=== PATIENT | male | born 1965 | race Caucasian/White ===

== ENCOUNTER 2018-07-12 19:40 | Emergency (ER) | payer OTHER ==
[~2018-07-12] VITALS: Ht 180.3 cm; Wt 91.9 kg
[2018-07-12 19:46] VITALS: Ht 180.3 cm; Wt 91.9 kg
--- NOTE | 2018-07-12 20:17 | ERD ---
ER Documentation Chief Complaint Chief Complaint pain right rib cage, states fell from ladder in april, c/o sob HPI 53-year-old male presents with complain of rib pain and shortness of breath. Patient states to have fallen off a ladder May 12 and to have had left rib pain since the accident. Patient also notes over the past week he has had cough, congestion, shortness of breath and increase in chest wall pain with cough and deep respirations. Patient states to have seen his PCP 2 days ago for cough and flu-like symptoms, was told to have the flu and not given medication at that time. Patient notes previous episodes of flu with similar symptoms and presentation. Patient is not currently taking any medications to relieve his symptoms. Denies fevers. Patient is a non-smoker, denies recent long distance travel, no history of cardiac disease, no history of diabetes. Patient takes no prescribed medicines and states to be in otherwise good health. ROS All systems reviewed and are negative except as per history of present illness. Medications Home Meds Active Scripts Azithromycin* (Zithromax*) 250 Mg Tablet, 250 MG PO .ZPACK DIRECTED, #6 TAB TAKE 500 MG (2 TABS) THE FIRST DAY THEN 250 MG (1 TAB) DAYS 2-5 Prov:EMILIE HERNANDEZ PA-C 07/13/18 Allergies Allergies: Coded Allergies: No Known Allergy (Unverified , 04/19/12) PMhx/Soc Medical and Surgical Hx: pt denies Medical Hx, pt denies Surgical Hx Hx Alcohol Use: Yes (occassionally ) Hx Substance Use: No Hx Tobacco Use: No Smoking Status: Unknown if ever smoked FmHx Family History: diabetes Physical Exam Vitals Vital Signs Date Temp Pulse Resp B/P (MAP) Pulse Ox O2 O2 Flow FiO2 Time Delivery Rate 07/13/18 89 18 131/79 95 Room Air 01:23 (96) 07/12/18 99.1 18 141/77 94 20:00 (98) 07/12/18 99.6 104 18 141/77 94 19:46 (98) Physical Exam General: alert, oriented X 3, no acute distress, well developed, well nourished, hydration normal Head/Eyes: atraumatic, normocephalic, PERRL, EOMI ENT: moist mucous membranes, normal pharynx Neck: supple/no meningismus, non-tender, full range of motion, no thyromegaly Respiratory: Decreased breath sounds over the LLL/RLL bilat. Decreased lung expansion. No wheezes, rales, rhonchi. No accessory muscle use. No chest wall tenderness Cardiovascular: regular rate and rhythm, normal heart sounds, no murmurs, rubs or gallops. Normal distal pulses. Abdomen: soft, non-tender, no guarding, no rebound, no hepatosplenomegaly. Extremities: non-tender, no swelling, full range of motion Back: full range of motion, painless range of motion Skin: no rash, warm, dry Neurologic: alert, oriented X 3, CN II-XII intact, normal speech, no motor deficits, no sensory deficits, reflexes equal bilat, normal gait Psychiatric: normal mood, normal affect Result Diagram: 07/12/18221007/12/182210 Results 24 hrs Laboratory Tests Test 07/12/18 22:07 07/12/18 22:11 Prothrombin Time 13.7 Sec Prothrombin Time Ratio 1.1 INR International Normalized Ratio 1.04 Activated Partial Thromboplast Time 28.4 Sec POC Venous Lactate 1.1 mmol/L White Blood Count 19.3 10^3/ul Red Blood Count 5.21 10^6/ul Hemoglobin 16.2 g/dl Hematocrit 46.8 % Mean Corpuscular Volume 89.8 fl Mean Corpuscular Hemoglobin 31.1 pg Mean Corpuscular Hemoglobin Concent 34.6 g/dl Red Cell Distribution Width 11.8 % Platelet Count 321 10^3/UL Mean Platelet Volume 9.2 fl Immature Granulocytes % 0.800 % Neutrophils % % Segmented Neutrophils % (Manual) 34 % Band Neutrophils % (Manual) 2 % Lymphocytes % % Lymphocytes % (Manual) 21 % Monocytes % % Monocytes % (Manual) 8 % Eosinophils % % Eosinophils % (Manual) 34 % Basophils % % Metamyelocytes % (manual) 1 % Nucleated Red Blood Cells % 0.0 /100WBC Immature Granulocytes # 0.160 10^3/ul Neutrophils # 10^3/ul Neutrophils # (Manual) 6.6 10^3/ul Band Neutrophils # 0.3 10^3/ul Lymphocytes (Manual) 4.0 10^3/ul Lymphocytes # 10^3/ul Monocytes # 10^3/ul Monocytes # (Manual) 1.5 10^3/ul Eosinophils # 10^3/ul Basophils # 10^3/ul Metamyelocytes # 0.1 10^3/ul Nucleated Red Blood Cells # 10^3/ul Platelet Estimate NORMAL Anisocytosis 1+ Microcytosis 1+ Sodium Level 142 mmol/L Potassium Level 4.5 mmol/L Chloride Level 100 mmol/L Carbon Dioxide Level 27 mmol/L Anion Gap 15 Blood Urea Nitrogen 16 mg/dl Creatinine 0.97 mg/dl Est Glomerular Filtrat Rate mL/min > 60 mL/min Glucose Level 123 mg/dl Calcium Level 9.9 mg/dl Total Bilirubin 0.7 mg/dl Direct Bilirubin 0.00 mg/dl Indirect Bilirubin 0.7 mg/dl Aspartate Amino Transf (AST/SGOT) 18 IU/L Alanine Aminotransferase (ALT/SGPT) 26 IU/L Alkaline Phosphatase 137 IU/L Total Protein 8.6 g/dl Albumin 4.5 g/dl Globulin 4.10 g/dl Albumin/Globulin Ratio 1.09 Current Medications Medications Dose Sig/Trey Start Time Status Last (Trade) Ordered Route PRN Stop Time Admin Dose Reason Admin Ceftriaxone 1 gm ONCE ONCE 07/12/18 DC 07/12/18 Sodium IM 22:00 22:11 (Rocephin) 07/12/18 22:01 500 mg ONCE ONCE 07/13/18 DC 07/13/18 Azithromycin PO 00:30 01:22 (Zithromax) 07/13/18 00:31 Procedures/MDM PROCEDURE: XR Chest. CLINICAL INDICATION: Chest pain, shortness of breath. COMPARISON: None available FINDINGS: The cardiomediastinal silhouette is within normal limits. There are patchy infiltrates in the bilateral mid and lower lung zones with focal consolidation in the left lower lobe. There is suggestion of opacification in the right lower lobe. There is a small left-sided pleural effusion.. No signs of pneumothorax are seen. The osseous structures and soft tissues are unremarkable. IMPRESSION: 1. Patchy, round densities bilateral mid and lower lung zones with focal consolidation in the posterior basilar segments of the bilateral lower lobes. This may be related to multifocal pneumonia, however given the round appearance, CT is recommended to exclude underlying mass lesions. 2. Small left-sided pleural effusion. 3. If clinical concern for metastases, CT may be helpful for further evaluation. PROCEDURE: CT Chest without contrast. CLINICAL INDICATION: Shortness of breath, abnormal chest x-ray, possible metastatic disease. COMPARISON: Chest x-ray dated 07/12/2018 at 08:19 p.m. FINDINGS: There is no suspicious thyroid lesion. No thoracic lymphadenopathy is seen. The trachea and mainstem bronchi are patent. The heart is not enlarged. There is no pericardial effusion. There are patchy consolidative opacities throughout both lungs. Mild to moderate atelectasis is noted at both lung bases. There is no pleural effusion or pneumothorax. A 6.6 cm left renal cyst is partially imaged. There is no suspicious osseous lesion. IMPRESSION: Patchy consolidative opacities throughout both lungs, probably representing multifocal pneumonia or an inflammatory process such as cryptogenic organizing pneumonia. A neoplastic process is considered unlikely, though not excluded. Repeat imaging should be performed following completion of appropriate therapy to confirm resolution of these opacities. MDM: This is an otherwise healthy 53yo M who presented to ED for evaluation of cough, cold, flu-like symptoms with SOB and associated Rib pain. CXR revealed opacities in lower lung lobes, unable to r/o mass. Follow-up CT imaging of the chest revealed patchy consolidative opacities throughout both lungs. Labs performed and revealed elevated white count with normal POC lactate. Pt given Rocephin 1gm IM and Azithromycin 500mg PO while in ED. Counseled pt regarding CXR and Imaging findings. Per consult with Dr. Shea, discussed possible need for admission with patient given findings. Pt declined and wished to try outpatient antibiotic treatment first. Per consult with Dr. Shea, pt started on antibiotics for CAP given improvement in vitals, pulse ox greater than 94%, and non-toxic appearance. Pt advised that if symptoms do not improve within in the next 24-48 hrs despite antibiotic treatment to return immediately for possible admission and initiation of IV abx. Pt agreed to return precautions. Pt expressed verbal understanding and agreement to treatment plan. All questions addressed and answered. Departure Diagnosis: Primary Impression: Pneumonia Pneumonia type: due to unspecified organism Laterality: bilateral Lung location: unspecified part of lung Qualified Codes: J18.9 - Pneumonia, unspecified organism Condition: Stable Patient Instructions: Pneumonia (Adult) EMILIE HERNANDEZ PA-C Jul 12, 2018 20:17
[2018-07-12] MEDS ORDERED: CEFTRIAXONE 1 GM INJ IM ONE (22:00)
[2018-07-13] MEDS ORDERED: AZITHROMYCIN 500 MG TAB PO ONE (00:30)
[2018-07-13 01:23] VITALS: BP 131/79; PULSE 89; RESP 18
[2018-07-13] MEDS ORDERED: AZIT250T PO (01:28)
== END 2018-07-13 01:40 | disposition home or self-care (01) ==
LOC: FTE 19:40
DX: J18.9 Pneumonia, unspecified organism (principal); R07.9 Chest pain, unspecified
CPT/HCPCS: 71046; 71250; 80053; 83605; 85025; 85610; 85730; 87040; 87400; 93005; 96372; 99285; J0696